=== PATIENT | male | born 1975 | race Hispanic/Latino ===

== ENCOUNTER 2018-03-27 11:23 | Emergency (ER) | payer OTHER ==
[~2018-03-27] VITALS: Ht 172.7 cm; Wt 111.1 kg
--- NOTE | 2018-03-27 12:16 | ED GENERAL ADULT ---
See Addendum History of Present Illness General Chief Complaint: Abdominal Pain/Flank Pain Stated Complaint: LOWER ABD PAIN Source: patient, family Exam Limitations: no limitations Vital Signs & Intake/Output Vital Signs & Intake/Output Vital Signs Date Time Temp Pulse Resp B/P B/P Pulse O2 O2 Flow FiO2 Mean Ox Delivery Rate 03/27 1703 63 18 157/74 96 Room Air 03/27 1129 97.3 60 20 133/84 98 Room Air Allergies Coded Allergies: shellfish derived (UNKNOWN 03/27/18) Reconcile Medications No Known Home Medications Triage Note: PT SENT TO ED BY [employer] FOR UPPER ABD PAIN SINCE YESTERDAY. PT STATES DIARRHEA, DENIES N/V. DENIES S/S. PT RECENTLY FINISHED ABX FOR DENTAL WORK. STATES PAIN IS CONSTANT 01/29 BUT COMES AND GOES TO A 05/01. Triage Nurses Notes Reviewed? yes HPI: 43-year-old male comes in with diffuse abdominal pain for the past few days. He reports worsening pain. He denies nausea vomiting with reports of diarrhea. The patient denies fever, chills, bleeding. The patient denies any chronic abdominal pain, history of abdominal pain. The patient had a recent dental procedure and has been unable to take full solid diet since then. He has been on Ensure and clear liquid diet only. Past History Travel History Traveled to [place] past 21 day No Medical History Any Pertinent Medical History? none Surgical History Surgical History: non-contributory Psychosocial History What is your primary language Indonesian Tobacco Use: Quit >30 days ago ETOH Use: denies use Illicit Drug Use: denies illicit drug use Family History Hx Contributory? No Review of Systems Review of Systems Constitutional: Denies: chills, diaphoresis, fever. EENTM: Denies: blurred vision, double vision, visual changes. Respiratory: Denies: cough, hemoptysis, orthopnea. Cardiovascular: Denies: chest pain, edema, orthopena. GI: Reports: abdominal pain, diarrhea. Denies: bloating, constipation, distention, bowel incontinence, nausea, bloody stool. Genitourinary: Denies: discharge, dysuria, frequency. Musculoskeletal: Denies: back pain, gout, joint pain. Skin: Denies: cysts, change in skin color, change in hair/nails. Neurological/Psychological: Denies: anxiety, ataxia, cognitive dysfunction. Hematologic/Endocrine: Denies: bruising. Physical Exam Physical Exam General Appearance: well developed/nourished, no apparent distress, alert, awake Head: atraumatic, normal appearance Eyes: Bilateral: PERRL, EOMI. Ears, Nose, Throat: normal pharynx, normal ENT inspection, hearing grossly normal Neck: normal inspection, supple Respiratory: normal breath sounds, chest non-tender Cardiovascular: regular rate/rhythm Gastrointestinal: normal bowel sounds, soft, see below Back: normal inspection Neurologic/Psych: no motor/sensory deficits, awake, alert, oriented x 3, normal gait Skin: intact, normal color Comments: Soft abdomen no focal tenderness but diffuse tenderness in the left and right lower quadrant. No peritoneal signs. Core Measures ACS in differential dx? No CVA/TIA Diagnosis: No Sepsis Present: No Sepsis Focused Exam Completed? No Progress Differential Diagnoses . Plan of Care: Orders Procedure Date/time Status LACTIC ACID 03/27 1739 Active C-REACTIVE PROTEIN 03/27 1520 Complete STOOL: R/O YERSINIA 03/27 1504 Active CULTURE,STOOL 03/27 1504 Active C.DIFFICILE 03/27 1504 Active LACTIC ACID 03/27 1439 Complete HIGH SENSITIVITY CRP 03/27 1439 Complete WESTERGREN SED RATE 03/27 1439 Complete Saline Lock 03/27 1211 Active URINALYSIS 03/27 1211 Complete LIPASE 03/27 1211 Complete COMPREHENSIVE METABOLIC PANEL 03/27 1211 Complete CBC WITHOUT DIFFERENTIAL 03/27 1211 Complete Laboratory Tests 03/27/18 1520: Lactic Acid 0.8, C-Reactive Prot, Quant 5.5 H, C-React Prot High Sens > 15.0 H , ESR Westergren 21 H 03/27/18 1230: Anion Gap 9, Estimated GFR > 60, BUN/Creatinine Ratio 10.9, Glucose 101 H, Calcium 9.3, Total Bilirubin 1.0, AST 29, ALT 32, Alkaline Phosphatase 41, Total Protein 7.6, Albumin 4.3, Globulin 3.3, Albumin/Globulin Ratio 1.3, Lipase 30, CBC w Diff NO MAN DIFF REQ, RBC 4.64 L, MCV 90.1, MCH 31.3 H, MCHC 34.8, RDW 12.8, MPV 8.9, Gran % 67.7, Lymphocytes % 23.0, Monocytes % 8.2, Eosinophils % 0.7, Basophils % 0.4, Absolute Granulocytes 6.5, Absolute Lymphocytes 2.2, Absolute Monocytes 0.8 H, Absolute Eosinophils 0.1, Absolute Basophils 0, Urine Color YEL, Urine Clarity CLEAR, Urine pH 6.0, Ur Specific [place] >= 1.030, Urine Protein NEG, Urine Ketones NEG, Urine Nitrite NEG, Urine Bilirubin NEG, Urine Urobilinogen 0.2, Ur Leukocyte Esterase NEG, Ur Microscopic SEDIMENT EXAMINED, Urine RBC 1-3, Urine WBC 1-3 H, Urine Bacteria FEW H, Urine Mucus FEW, Urine Hemoglobin TRACE-INTACT H, Urine Glucose NEG Microbiology 03/27 152 STOOL: Clostridium difficile Toxin A & B - RECD 03/27 152 STOOL: Yersinia Culture - RECD 03/27 152 STOOL: Stool Culture - RECD Initial ED EKG: none Comments: I suspect the patient's pain is due to the diarrhea. Which is likely because he has not had solid diet in the while. He probably does not have enough fiber. I have spoken to him about introducing fiber in his diet using different techniques of semisolid food. He can also use blended fruits, bread and other diets. Otherwise he does have lower abdominal tenderness we will get CT scan for further evaluation make sure he does not know appendicitis. The patient is young and has never had CT scan. 1230 the patient has shellfish allergy so the CT department will change the CT scan to without IV contrast. I spoke with the tech. 1438 Spoke with GI. Discussed the CT scan. He feels that this is colitis, recommendation stool culture, discharged with Cipro Flagyl and follow-up in office. He wants ESR, CRP as well. 1505 surgeries here to evaluate the patient in the ER as well. As the CT scan report chest, appendix was not visualized with the patient's swelling is around the cecal area. 1704: The patient has no specific right lower quadrant tenderness or peritoneal signs. I do not feel he has appendicitis. The surgeons have come and evaluated the patient and they recommend the same thing. They recommend the patient can be discharged. For safety the patient will be asked to come back in the morning for evaluation. In the meantime he will be asked to call and follow-up with a GI doctor. I will start the patient on antibiotics as requested by the GI doctor. The CRP and ESR are elevated as expected by GI for colitis. But they wanted to see the levels. The fact that the appendix is not seen makes it less likely it is appendicitis because the appendix were used to be swollen but due to abundance of caution, the patient will be brought back in the morning for recheck. Departure Departure Time of Disposition: 1705 Disposition: HOME OR SELF CARE Condition: Stable Clinical Impression Primary Impression: Colitis Referrals: Darlyn VARGAS,Seb Good (PCP/Family) Additional Instructions: Return in the morning for reevaluation of her abdomen. Return sooner if your worse. Return for fever, return for nausea vomiting. Do not drive if you take the pain medicine. call and Follow-up with a GI doctor. Departure Forms: Customer Survey General Discharge Information Prescriptions: Current Visit Scripts No Known Home Medications Critical Care Note Critical Care Note Critical Care Time: non-applicable
[2018-03-27 12:41] LABS: ABSOLUTE BASOPHIL COUNT 0 /CUMM (0.0-0.2); ABSOLUTE EOSINOPHIL COUNT 0.1 /CUMM (0.0-0.7); ABSOLUTE GRANULOCYTE CT 6.5 /CUMM (1.4-6.5); ABSOLUTE LYMPH COUNT 2.2 /CUMM (1.2-3.4); ABSOLUTE MONOCYTE COUNT 0.8 /CUMM (0.10-0.60); BASOPHIL % 0.4 % (0.0-2.0); EOSINOPHIL % 0.7 % (0-5); GRANULOCYTE % 67.7 % (42.2-75.2); HEMATOCRIT 41.8 % (42-52); MEAN CORPUSCULAR HGB 31.3 PG (27.0-31.0); MEAN CORPUSCULAR HGB CONC 34.8 G/DL (33.0-37.0); MEAN CORPUSCULAR VOLUME 90.1 FL (80.0-94.0); MEAN PLATELET VOLUME 8.9 FL (7.4-10.4); PLATELET COUNT 267 /CUMM (130-400); RBC DISTRIBUTION WIDTH 12.8 % (11.5-14.5); RED BLOOD CELL CT 4.64 /CUMM (4.70-6.10); WHITE BLOOD CELL COUNT 9.6 /CUMM (4.8-10.8)
--- NOTE | 2018-03-27 13:16 | CT SCAN REPORT ---
EXAMINATION: CT ABDOMEN AND PELVIS WITHOUT CONTRAST CLINICAL INFORMATION: Diffuse abdominal pain. COMPARISON: None. TECHNIQUE: Multidetector volumetric imaging was performed from the superior aspect of the liver through the pubic symphysis. Sagittal and coronal reformatted images were obtained on the technologist's workstation. DLP: 670.87 mGy-cm FINDINGS: LUNG BASES: The visualized lung bases are unremarkable. LIVER, GALLBLADDER, AND BILIARY TREE: The liver is normal in size and shape. It has diffusely low attenuation consistent with hepatic steatosis. No focal hepatic lesion or biliary ductal dilatation is present. The gallbladder is unremarkable with no evidence of radiopaque gallstones, gallbladder wall thickening, or obvious pericholecystic inflammatory changes. PANCREAS: Unremarkable. SPLEEN: Unremarkable. ADRENAL GLANDS: The adrenal glands nonenlarged. KIDNEYS AND URETERS: The kidneys are normal in size, shape, and attenuation. No hydronephrosis, hydroureter, or calculi seen. No perinephric stranding. BLADDER: The urinary bladder is almost empty. GASTROINTESTINAL TRACT: The stomach appears normal. The loops of small bowel are not dilated, and there is no evidence of significant thickening of the distal ileum. There is thickening of bowel wall at the cecum and proximal ascending colon, and there is stranding in the pericecal fat. There are moderately prominent pericecal lymph nodes medially. The appendix is not discretely visualized. The remainder of the large bowel is relatively decompressed. There is no evidence of obstruction. There is no free intra-abdominal air. ABDOMINAL WALL: There is a small fat-containing umbilical hernia. LYMPH NODES: As described above there are pericecal lymph nodes medially. There are a few small nonspecific retroperitoneal lymph nodes. VASCULAR: Evaluation is limited without intravenous contrast. There are mild atheromatous calcifications in the iliac arteries bilaterally. PELVIC VISCERA: The prostate gland is nonenlarged. There is no free fluid in the pelvis. OSSEOUS STRUCTURES: There are no acute fractures or subluxations. There is narrowing of intervertebral disc height at L5-S1. There are facet arthropathic changes at L4-L5 and L5-S1. IMPRESSION: 1. There are inflammatory changes around the cecum, with increased density in the pericecal fat and pericecal lymph nodes. A discrete appendix is not definitively identified. The findings may be consistent with inflammatory bowel disease, or typhlitis. 2. The kidneys are normal without evidence of radiodense renal calculi or hydronephrosis/hydroureter. 3. There is hepatic steatosis.
[2018-03-27 17:03] VITALS: BP 157/74
[2018-03-27] MEDS ORDERED: VICODIN 5-3001 EACH PO (17:11)
[2018-03-27] MEDS ORDERED: CIPRO500 M1 PO (17:12)
[2018-03-27] MEDS ORDERED: FLAGYL500 MG PO (17:12)
--- NOTE | 2018-03-27 17:30 | Cons- General Surgery ---
Mamadou Chen 03/27/18 1704: General Information and HPI Consulting Request Date of Consult: 03/27/18 Requested By: Dr Kirby Reason for Consult: R/o appendicitis Source of Information: patient History of Present Illness: This is a 43 year-old male who recently underwent a complete dental extraction for dental infections over the years at [facility] and completed a week long course of Amoxicillin for who presents with acute onset of constant abdominal pain with associated diarrhea, subjective fever and chills. He reports pain began when he woke up yesterday, describes as crampy and sharp and is diffuse in nature. He reports multiple episodes of diarrhea described as >20 green, malodorus, mucus in nature. Due to dental extraction, he has been on a liquid diet. Denies nausea or vomiting. He reports recent cruise to [place] one month ago. He denies colonoscopy or family history of IBD. In ER, he had a CT scan which revealed inflammatory changes around the cecum, with increased density in the pericecal fat and pericecal lymph nodes, appendix could not be identified. Therefore, surgery was consulted. Allergies/Medications Allergies: Coded Allergies: shellfish derived (UNKNOWN 03/27/18) Past History Surgical History Pertinent Surgical History: Dental extraction Psychosocial History ETOH Use: denies use Illicit Drug Use: denies illicit drug use Review of Systems Review of Systems: Per HPI Exam & Diagnostic Data Vital Signs and I&O Vital Signs Date Time Temp Pulse Resp B/P B/P Pulse O2 O2 Flow FiO2 Mean Ox Delivery Rate 03/27 1703 63 18 157/74 96 Room Air 03/27 1129 97.3 60 20 133/84 98 Room Air Intake & Output 03/27 1600 03/27 0000 03/26 1600 03/26 0800 03/26 0000 Intake Total 1000 Output Total Balance 1000 Intake, IV 1000 Patient 245 lb Weight Weight Estimated Measurement Method Physical Exam: Gen - resting uncomfortably accompained by family in nad Cardiac- S1S2 noted Lungs - CTAB Abd - soft, nondistended, tender to deep palpation in RLQ, RUQ and epigastric region without rebound or guarding. No peritonitis Ext - no edema or calf pain Last 24 Hours of Labs: Laboratory Tests 03/27 03/27 1520 1230 Chemistry Sodium (137 - 145 mmol/L) 135 L Potassium (3.5 - 5.1 mmol/L) 4.8 Chloride (98 - 107 mmol/L) 98 Carbon Dioxide (22 - 30 mmol/L) 28 Anion Gap (5 - 16) 9 BUN (9 - 20 mg/dL) 12 Creatinine (0.7 - 1.2 mg/dL) 1.1 Estimated GFR (>60 ml/min) > 60 BUN/Creatinine Ratio (7 - 25 %) 10.9 Glucose (65 - 99 mg/dL) 101 H Lactic Acid (0.7 - 2.1 mmol/L) 0.8 Calcium (8.4 - 10.2 mg/dL) 9.3 Total Bilirubin (0.2 - 1.3 mg/dL) 1.0 AST (17 - 59 U/L) 29 ALT (21 - 72 U/L) 32 Alkaline Phosphatase (< 127 U/L) 41 C-Reactive Prot, Quant (<1.0 mg/dL) 5.5 H C-React Prot High Sens (1.0 - 3.0 mg/L) > 15.0 H Total Protein (6.3 - 8.2 g/dL) 7.6 Albumin (3.5 - 5.0 g/dL) 4.3 Globulin (1.9 - 4.2 gm/dL) 3.3 Albumin/Globulin Ratio (1.1 - 2.2 %) 1.3 Lipase (23 - 300 U/L) 30 Hematology CBC w Diff NO MAN DIFF REQ WBC (4.8 - 10.8 /CUMM) 9.6 RBC (4.70 - 6.10 /CUMM) 4.64 L Hgb (14.0 - 18.0 G/DL) 14.5 Hct (42 - 52 %) 41.8 L MCV (80.0 - 94.0 FL) 90.1 MCH (27.0 - 31.0 PG) 31.3 H MCHC (33.0 - 37.0 G/DL) 34.8 RDW (11.5 - 14.5 %) 12.8 Plt Count (130 - 400 /CUMM) 267 MPV (7.4 - 10.4 FL) 8.9 Gran % (42.2 - 75.2 %) 67.7 Lymphocytes % (20.5 - 51.1 %) 23.0 Monocytes % (1.7 - 9.3 %) 8.2 Eosinophils % (0 - 5 %) 0.7 Basophils % (0.0 - 2.0 %) 0.4 Absolute Granulocytes (1.4 - 6.5 /CUMM) 6.5 Absolute Lymphocytes (1.2 - 3.4 /CUMM) 2.2 Absolute Monocytes (0.10 - 0.60 /CUMM) 0.8 H Absolute Eosinophils (0.0 - 0.7 /CUMM) 0.1 Absolute Basophils (0.0 - 0.2 /CUMM) 0 ESR Westergren (0 - 10 MM) 21 H Urines Urine Color (YEL,AMB,STR) YEL Urine Clarity (CLEAR) CLEAR Urine pH (5.0 - 8.0) 6.0 Ur Specific [place] (1.001 - 1.035) >= 1.030 Urine Protein (NEG,<30 MG/DL) NEG Urine Ketones (NEG) NEG Urine Nitrite (NEG) NEG Urine Bilirubin (NEG) NEG Urine Urobilinogen (0.1 - 1.0 EU/dl) 0.2 Ur Leukocyte Esterase (NEG) NEG Ur Microscopic SEDIMENT EXAMINED Urine RBC (0 - 5 /HPF) 1-3 Urine WBC (0 - 2 /HPF) 1-3 H Urine Bacteria (NEG/NONE) FEW H Urine Mucus (FEW,NONE) FEW Urine Hemoglobin (NEG) TRACE-INTACT H Urine Glucose (N MG/DL) NEG Imaging Results: SERVICE DATE: 03/27/18 EXAM TYPE: CAT - CT ABD & PELVIS W/O IV CONTRAS EXAMINATION: CT ABDOMEN AND PELVIS WITHOUT CONTRAST CLINICAL INFORMATION: Diffuse abdominal pain. COMPARISON: None. TECHNIQUE: Multidetector volumetric imaging was performed from the superior aspect of the liver through the pubic symphysis. Sagittal and coronal reformatted images were obtained on the technologist's workstation. DLP: 670.87 mGy-cm FINDINGS: LUNG BASES: The visualized lung bases are unremarkable. LIVER, GALLBLADDER, AND BILIARY TREE: The liver is normal in size and shape. It has diffusely low attenuation consistent with hepatic steatosis. No focal hepatic lesion or biliary ductal dilatation is present. The gallbladder is unremarkable with no evidence of radiopaque gallstones, gallbladder wall thickening, or obvious pericholecystic inflammatory changes. PANCREAS: Unremarkable. SPLEEN: Unremarkable. ADRENAL GLANDS: The adrenal glands nonenlarged. KIDNEYS AND URETERS: The kidneys are normal in size, shape, and attenuation. No hydronephrosis, hydroureter, or calculi seen. No perinephric stranding. BLADDER: The urinary bladder is almost empty. GASTROINTESTINAL TRACT: The stomach appears normal. The loops of small bowel are not dilated, and there is no evidence of significant thickening of the distal ileum. There is thickening of bowel wall at the cecum and proximal ascending colon, and there is stranding in the pericecal fat. There are moderately prominent pericecal lymph nodes medially. The appendix is not discretely visualized. The remainder of the large bowel is relatively decompressed. There is no evidence of obstruction. There is no free intra-abdominal air. ABDOMINAL WALL: There is a small fat-containing umbilical hernia. LYMPH NODES: As described above there are pericecal lymph nodes medially. There are a few small nonspecific retroperitoneal lymph nodes. VASCULAR: Evaluation is limited without intravenous contrast. There are mild atheromatous calcifications in the iliac arteries bilaterally. PELVIC VISCERA: The prostate gland is nonenlarged. There is no free fluid in the pelvis. OSSEOUS STRUCTURES: There are no acute fractures or subluxations. There is narrowing of intervertebral disc height at L5-S1. There are facet arthropathic changes at L4-L5 and L5-S1. IMPRESSION: 1. There are inflammatory changes around the cecum, with increased density in the pericecal fat and pericecal lymph nodes. A discrete appendix is not definitively identified. The findings may be consistent with inflammatory bowel disease, or typhlitis. 2. The kidneys are normal without evidence of radiodense renal calculi or hydronephrosis/hydroureter. 3. There is hepatic steatosis. DICTATED BY: Iker Aj MD DATE/TIME DICTATED:03/27/181302 KNOTTER:OSKAR DATE/TIME TRANSCRIBED:03/27/181302 Assessment/Plan Assessment/Plan This is a 43 year-old male who recently underwent a complete dental extraction and completed a week long course of antibiotics, presents with abdominal pain, multiple episodes of diarrhea and has an elevated ESR and CRP. Imaging reviewed with Dr. Hoffmann, no concern for acute appendicitis at this time. Differentials include IBD and c.diff. Recommend GI outpt consult for further IBD/colitis workup. C.diff, stool culture ordered. Antibiotics per GI/ER. Patient was instructed to follow up with Dr. Hoffmann or return to hosptial if he develops worsening abdominal pain, fever, chills, nausea, vomiting or worsening symptoms. Discussed with Dr. Hoffmann who is in agreement Consult Acknowledgment - Thank you for your consult request. Shun ODONNELLRegan 03/27/18 1800: General Information and HPI Allergies/Medications Home Med List: Ciprofloxacin HCl (Cipro) 500 MG TABLET 1 TAB PO BID colitis Hydrocodone/Acetaminophen (Vicodin 5-300 MG Tablet) 5 MG-300 MG TABLET 1 TAB PO Q6 abdominal pain Metronidazole (Flagyl) 500 MG TABLET 1 TAB PO TID colitis Assessment/Plan Consult Acknowledgment - Thank you for your consult request. Attending MD Review Statement Attending Statement Attending MD Statement: discuss w/resident/PA/RELIGIOUS EDUCATOR, agreed w/resident/PA/RELIGIOUS EDUCATOR, reviewed EMR data (avail), reviewed images
[2018-03-29] MEDS ORDERED: VANCOMYCIN HCL5 G1 PO (09:16)
[2018-03-30] MEDS ORDERED: VANCOMYCIN HCL5 G1 PO (09:20)
== END 2018-03-27 17:22 ==
LOC: ERH 11:23
PROVIDERS: Emergency Medicine
DX: K52.9 Noninfective gastroenteritis and colitis, unspecified (principal); R10.9 Unspecified abdominal pain; R19.7 Diarrhea, unspecified; Z87.891 Personal history of nicotine dependence
CPT/HCPCS: 74176; 81001; 87015; 87045; 87899; 87899-59; 96374; 96375; J2405